=== PATIENT | male | born 1965 | race African-American/Black ===

== ENCOUNTER 2016-02-25 13:07 | Inpatient (IN) | payer OTHER ==
[2016-02-25 13:38] VITALS: BMI 25.0
--- NOTE | 2016-02-25 15:53 | HP ---
Admission [facility] Chief Complaint: I need to stop using drugs and I don't want to lose my apt. Allergies/Adverse Reactions: Allergies Allergy/AdvReac Type Severity Reaction Status Date / Time No Known Drug Allergies Allergy Verified 02/25/16 15:44 tomato Allergy Rash Verified 02/25/16 15:44 PASTA Allergy Severe Rash Uncoded 02/25/16 15:44 tomato sauce Allergy Rash Uncoded 02/25/16 15:44 History of Present Illness: 50 y/o m pt with h/o chronic alcoholism and crack dep. seeking rehab. Exam Limitations: No Limitations - Ebola screening Have you traveled outside of the country in the last 21 days: No Have you had contact with anyone from an Ebola affected area: No Have you been sick,other than usual withdrawal symptoms: No Do you have a fever: No - Review of Systems Constitutional: No Symptoms Reported EENT: reports: No Symptoms Reported Respiratory: reports: No Symptoms reported Cardiac: reports: No Symptoms Reported GI: reports: No Symptoms Reported Neuro: reports: No Symptoms reported Endocrine: reports: No Symptoms Reported Hematology: reports: No Symptoms Reported Psychiatric: reports: No Sypmtoms Reported Other Systems: Reviewed and Negative Patient History - Patient Medical History Hx Anemia: No Hx Asthma: No Hx Chronic Obstructive Pulmonary Disease (COPD): No Hx Cancer: No Hx Cardiac Disorders: No Hx Congestive Heart Failure: No Hx Hypertension: No Hx Hypercholesterolemia: No Hx Pacemaker: No HX Cerebrovascular Accident: No Hx Seizures: No Hx Dementia: No Hx Diabetes: No Hx Gastrointestinal Disorders: No Hx Liver Disease: No Hx Genitourinary Disorders: No Hx Sexually Transmitted Disorders: Yes (1985) Hx Renal Disease (ESRD): No Hx Thyroid Disease: No Hx Human Immunodeficiency Virus (HIV): No (negative) Hx Hepatitis C: No Hx Depression: No Hx Suicide Attempt: No Hx Bipolar Disorder: No Hx Schizophrenia: No Other Medical History: h/o cerebral palsy - Patient Surgical History Past Surgical History: Yes Hx Neurologic Surgery: No Hx Cataract Extraction: No Hx Cardiac Surgery: No Hx Lung Surgery: No Hx Breast Surgery: No Hx Breast Biopsy: No Hx Abdominal Surgery: No Hx Appendectomy: No Hx Cholecystectomy: No Hx Genitourinary Surgery: No Hx Section: No Hx Orthopedic Surgery: Yes (BILATERAL LEG SX DUE TO CEREBRAL PALSY) Anesthesia Reaction: No - PPD History Previous Implant?: Yes Date: 12/11/15 Results: tb gold -neg PPD to be Administered?: No - Reproductive History Patient is a Female of Child Bearing Age (11 -55 yrs old): No - Smoking Cessation Smoking history: Never smoked Have you smoked in the past 12 months: No Aproximately how many cigarettes per day: 0 Cigars Per Day: 0 Hx Chewing Tobacco Use: No Initiated information on smoking cessation: No 'Breaking Loose' booklet given: 02/25/16 - Substance & Tx. History Hx Alcohol Use: Yes Hx Substance Use: Yes Substance Use Type: Alcohol, Cocaine Hx Substance Use Treatment: Yes ([facility] ) - Substances Abused Alcohol Route: Oral Frequency: Daily Amount used: beer 10-six pks /d Age of first use: 16 Date of Last Use: 02/20/16 Crack Route: Smoking Frequency: Daily Amount used: 3.5 gms /d Age of first use: 33 Date of Last Use: 02/20/16 Family Disease History - Family Disease History Family Disease History: Diabetes: Father (ALCOHOL IN REMISSION), CA: Mother ( FROM CA. OF THE BREAST), Other: Father Admission Physical Exam BHS - Vital Signs Vital Signs: Vital Signs - 24 hr 02/25/16 13:37 Temperature 96.8 F L Pulse Rate 107 H Respiratory 18 Rate Blood Pressure 146/86 50 y/o m pt with h/o cerebral palsy who is aox3 in nad ambulating (scissor like ) cooperative with exam - Physical General Appearance: Yes: No Apparent Distress, Appropriately Dressed HEENTM: Yes: EOMI, Hearing grossly Normal, Normocephalic, Normal Voice, WILMAN Respiratory: Yes: Chest Non-Tender, Lungs Clear, Normal Breath Sounds, No Respiratory Distress Neck: Yes: Supple, Trachea in good position Breast: Yes: Within Normal Limits Cardiology: Yes: Regular Rhythm, Regular Rate, S1, S2 Abdominal: Yes: Normal Bowel Sounds, Non Tender, Flat, Soft Genitourinary: Yes: Within Normal Limits Back: Yes: Within Normal Limits Musculoskeletal: Yes: Muscle weakness, Other (abnormal gaity -scissoring) Neurological: Yes: plater barrel II-XII NML intact, Fully Oriented, Alert Integumentary: Yes: Dry Lymphatic: Yes: Within Normal Limits - Diagnostic (1) Alcohol dependence with uncomplicated withdrawal Current Visit: Yes Status: Chronic (2) Cannabis dependence Current Visit: Yes Status: Chronic (3) Cerebral palsy Current Visit: Yes Status: Chronic Qualifiers: Cerebral palsy type: unspecified type Qualified Code(s): G80.9 - Cerebral palsy, unspecified (4) Cocaine dependence Current Visit: Yes Status: Chronic Cleared for Admission S - Detox or Rehab Claeared for Rehab Admission: Yes [facility] Breath Alcohol Content Breath Alcohol Content: 0 Urine Drug Screen - Results Drug Screen Negative: No Urine Drug Screen Results: JULIANN-Cocaine, MDMA-Ecstasy, BZO-Benzodiazepines
[2016-02-25] MEDS ORDERED: diphenhydrAMINE HCL 50 MG CAPSULE PO PRN (16:09)
[2016-02-25] MEDS ORDERED: guaiFENesin/D-METHORPHAN HB 10 ML UNIT-DOSE CUPS PO PRN (16:09)
[2016-02-25] MEDS ORDERED: MENTHOL/PHENOL 1 EACH UD MM PRN (16:09)
[2016-02-25] MEDS ORDERED: LOPERAMIDE HCL 2 MG CAPSULE PO PRN (16:09)
[2016-02-25] MEDS ORDERED: P-EPHED 60MG/TRIPROLIDI 2.5MG TABLET PO PRN (16:09)
[2016-02-25] MEDS ORDERED: MAGNESIUM HYDROX 2400MG/30ML ORAL SUSPENSION 30 ML CUP PO PRN (16:09)
[2016-02-25] MEDS ORDERED: MAG HYDROX/AL HYDROX/SIMETH 30 ML UNIT-DOSE CUP PO PRN (16:09)
[2016-02-25] MEDS ORDERED: MAGNESIUM CITRATE 300 ML BOTTLE PO PRN (16:09)
[2016-02-25] MEDS ORDERED: ACETAMINOPHEN 325 MG TABLET (FP) PO PRN (16:09)
[2016-02-25] MEDS: THIAMINE HCL 100 MG TABLET (FP) PO SCH (21:42)
[2016-02-25 23:43] LABS: URINE APPEARANCE SLCLOUDY; URINE BILIRUBIN NEGATIVE (NEGATIVE); URINE BLOOD NEGATIVE (NEGATIVE); URINE COLOR YELLOW; URINE GLUCOSE (UA) NEGATIVE (NEGATIVE); URINE KETONE NEGATIVE (NEGATIVE); URINE LEUK ESTERASE NEGATIVE (NEGATIVE); URINE NITRITE NEGATIVE (NEGATIVE); URINE PROTEIN NEGATIVE (NEGATIVE); URINE UROBILINOGEN NEGATIVE E.U./dl (0.2-1.0)
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
[2016-02-26 10:29] LABS: MCH 29.2 pg (25.7-33.7); MCHC 33.1 g/dl (32.0-35.9); MEAN CELL VOLUME 88.4 fl (80-96); MEAN PLT VOLUME 10.3 fl (7.5-11.1); PLATELET COUNT 196 K/MM3 (134-434); RDW 14.4 % (11.9-15.9); WHITE BLOOD COUNT 6.4 K/mm3 (4.0-10.0)
[2016-02-26] MEDS: PRENATAL VITAMINS W/ FOLIC ACID TABLET (FP) PO SCH (10:30)
[2016-02-26 10:32] LABS: ALBUMIN 4.1 g/dl (3.4-5.0); ANION GAP 6 (8-16); CALCIUM 9.5 mg/dL (8.5-10.1); CO2 26 mmol/L (21-32); GLUCOSE,RANDOM 127 mg/dL (74-106); SGOT/AST 13 U/L (15-37); SGPT/ALT 30 U/L (12-78)
[2016-02-26 10:35] LABS: ALK PHOS 92 U/L (45-117); BILIRUBIN,TOTAL 0.6 mg/dL (0.2-1.0)
--- NOTE | 2016-02-26 11:49 | EKG ---
Test Reason : Blood Pressure : / mmHG Vent. Rate : 070 BPM Atrial Rate : 070 BPM P-R Int : 112 ms QRS Dur : 082 ms QT Int : 376 ms P-R-T Axes : 046 -17 056 degrees QTc Int : 406 ms NORMAL SINUS RHYTHM POSSIBLE LEFT ATRIAL ENLARGEMENT BORDERLINE ECG WHEN COMPARED WITH ECG OF 11-AUG-2008 21:55, VENT. RATE HAS DECREASED BY 56 BPM Confirmed by ESTHELA BRISENO, JAMES ([id number]) on 02/26/2016 11:49:06 AM Referred By: Confirmed By:JAMES PROCTOR MD
[2016-02-26 12:26] LABS: HIV 1 & 2 AB NEGATIVE; HIV 1 AGp24 NEGATIVE
[2016-02-26] MEDS: THIAMINE HCL 100 MG TABLET (FP) PO SCH (22:52)
[2016-02-27] MEDS: PRENATAL VITAMINS W/ FOLIC ACID TABLET (FP) PO SCH (11:00)
[2016-02-27] MEDS: THIAMINE HCL 100 MG TABLET (FP) PO SCH (22:54)
[2016-02-28] MEDS: PRENATAL VITAMINS W/ FOLIC ACID TABLET (FP) PO SCH (10:37)
[2016-02-28] MEDS: IBUPROFEN 400 MG TABLET (FP) PO PRN (17:06)
[2016-02-28] MEDS: THIAMINE HCL 100 MG TABLET (FP) PO SCH (22:42)
[2016-02-29] MEDS: PRENATAL VITAMINS W/ FOLIC ACID TABLET (FP) PO SCH (10:26)
[2016-02-29] MEDS: IBUPROFEN 400 MG TABLET (FP) PO PRN (17:36)
[2016-02-29] MEDS: THIAMINE HCL 100 MG TABLET (FP) PO SCH (21:55)
[2016-03-01] MEDS: IBUPROFEN 400 MG TABLET (FP) PO PRN (09:17)
[2016-03-01] MEDS: PRENATAL VITAMINS W/ FOLIC ACID TABLET (FP) PO SCH (09:53)
[2016-03-01] MEDS: THIAMINE HCL 100 MG TABLET (FP) PO SCH (22:16)
[2016-03-02] MEDS: PRENATAL VITAMINS W/ FOLIC ACID TABLET (FP) PO SCH (10:56)
[2016-03-02] MEDS: THIAMINE HCL 100 MG TABLET (FP) PO SCH (22:29)
[2016-03-03] MEDS: PRENATAL VITAMINS W/ FOLIC ACID TABLET (FP) PO SCH (10:31)
[2016-03-03] MEDS ORDERED: CYCLOBENZAPRINE HCL 10 MG TABLET (FP) PO PRN (13:07)
[2016-03-03] MEDS: IBUPROFEN 400 MG TABLET (FP) PO PRN (20:05)
[2016-03-03] MEDS: THIAMINE HCL 100 MG TABLET (FP) PO SCH (23:14)
[2016-03-04] MEDS: PRENATAL VITAMINS W/ FOLIC ACID TABLET (FP) PO SCH (10:23)
[2016-03-04] MEDS: THIAMINE HCL 100 MG TABLET (FP) PO SCH (22:05)
[2016-03-05] MEDS: PRENATAL VITAMINS W/ FOLIC ACID TABLET (FP) PO SCH (09:46)
[2016-03-05] MEDS: THIAMINE HCL 100 MG TABLET (FP) PO SCH (21:53)
[2016-03-06] MEDS: PRENATAL VITAMINS W/ FOLIC ACID TABLET (FP) PO SCH (09:54)
[2016-03-06] MEDS: IBUPROFEN 400 MG TABLET (FP) PO PRN (09:54)
[2016-03-06] MEDS: THIAMINE HCL 100 MG TABLET (FP) PO SCH (23:15)
[2016-03-07] MEDS: PRENATAL VITAMINS W/ FOLIC ACID TABLET (FP) PO SCH (10:39)
[2016-03-07] MEDS: THIAMINE HCL 100 MG TABLET (FP) PO SCH (22:55)
[2016-03-08] MEDS: PRENATAL VITAMINS W/ FOLIC ACID TABLET (FP) PO SCH (10:09)
[2016-03-08] MEDS: THIAMINE HCL 100 MG TABLET (FP) PO SCH (22:57)
[2016-03-09] MEDS: PRENATAL VITAMINS W/ FOLIC ACID TABLET (FP) PO SCH (11:12)
[2016-03-09] MEDS: IBUPROFEN 400 MG TABLET (FP) PO PRN (12:03)
[2016-03-09] MEDS: THIAMINE HCL 100 MG TABLET (FP) PO SCH (22:22)
--- NOTE | 2016-03-10 09:44 | PN ---
Psychiatric Progress Note Vital Signs: Vital Signs Period Temp Pulse Resp BP Sys/Magaña Pulse Ox Last 24 Hr 97.4 F 68 16-18 132/86 Date of Session: 03/10/16 Chief Complaint:: Psychiarist Discharge Note HPI: Patient addressing Alcohol and Cocaine Dependence ROS: Cerebral Palsy Current Medications: Active Medications Generic Name Dose Route Start Last Admin Trade Name Freq PRN Reason Stop Dose Admin Acetaminophen 650 mg 02/25/16 16:09 Tylenol - PO Q4H PRN PAIN Al Hydroxide/Mg Hydroxide 30 ml 02/25/16 16:09 Mylanta Oral Suspension - PO Q6H PRN DYSPEPSIA Cyclobenzaprine HCl 10 mg 03/03/16 13:07 Flexeril - PO TID PRN MUSCLE SPASMS Diphenhydramine HCl 50 mg 02/25/16 16:09 Benadryl - PO HSMR1 PRN INSOMNIA Eucalyptus/Menthol/Phenol/Sorbitol 1 each 02/25/16 16:09 Cepastat Lozenge - MM Q4H PRN SORE THROAT Guaifenesin 10 ml 02/25/16 16:09 Robitussin Dm - PO Q6H PRN COUGH Ibuprofen 400 mg 02/25/16 16:09 03/09/16 12:03 Motrin - PO 400 mg Q6H PRN Administration SEVERE PAIN Loperamide HCl 4 mg 02/25/16 16:09 Imodium - PO Q6H PRN DIARRHEA Magnesium Citrate 300 ml 02/25/16 16:09 Citroma - PO Q48H PRN CONSTIPATION Magnesium Hydroxide 30 ml 02/25/16 16:09 03/09/16 15:47 Milk Of Magnesia - PO 30 ml DAILY PRN Administration CONSTIPATION Multivit/Folic Acid/Iron 1 tab 02/26/16 10:00 03/09/16 11:12 Vitamins (Sjr) - PO Not Given DAILY ELENA Pseudoephedrine/Triprolidine 1 combo 02/25/16 16:09 Actifed - PO TID PRN NASAL CONGESTION Thiamine HCl 100 mg 02/25/16 22:00 03/09/16 22:22 Vitamin B1 - PO Not Given HS ELENA Current Side Effect: No Lab tests ordered: Yes Lab tests reviewed: Yes Provider note:: Patient will complete this program on 03/11/16. He has made some progress towards his treatment goals and will continue to address his issues in outpatient treatment at [facility]. Told auto service writer that from his participation in this program, he has become more aware of his triggers and the importance of establising a sober network in order to maintain abstinence. He is stable for discharge on 03/11/16 Total face to face time:: 35 Mental Status Exam - Mental Status Exam Alert and Oriented to: Time, Place, Person Cognitive Function: Fair Patient Appearance: Well Groomed Mood: Expansive, Hopeful, Euthymic Patient Behavior: Cooperative Speech Pattern: Clear Voice Loudness: Normal, Limited Variation Thought Disorder: Not Present Hallucinations: Denies Suicidal Ideation: Denies Homicidal Ideation: Denies Insight/Judgement: Fair Sleep: Fair Appetite: Good Muscle strength/Tone: Normal Gait/Station: Normal Psychiatric Treatment Plan - Problem List (1) Alcohol dependence with uncomplicated withdrawal Current Visit: Yes (2) Cocaine dependence Current Visit: Yes (3) Cerebral palsy Current Visit: Yes Qualifiers: Cerebral palsy type: unspecified type Qualified Code(s): G80.9 - Cerebral palsy, unspecified Initial treatment plan: Patient will be discharged tomorrow and referred to for outpatient treatment
[2016-03-10] MEDS: IBUPROFEN 400 MG TABLET (FP) PO PRN (09:50)
[2016-03-10] MEDS: PRENATAL VITAMINS W/ FOLIC ACID TABLET (FP) PO SCH (10:16)
[2016-03-10] MEDS: THIAMINE HCL 100 MG TABLET (FP) PO SCH (22:44)
[2016-03-11 07:26] VITALS: BP 122/79; PULSE 77; TEMP 97.7
== END 2016-03-11 08:30 | disposition home or self-care (01) | DRG 772 ==
LOC: YASAS 13:07 → Y3W 16:17
PROVIDERS: ADMIT Psychiatry & Neurology Psychiatry; ATTEND Psychiatry & Neurology Psychiatry
PROC: HZ42ZZZ Group Counseling for Substance Abuse Treatment, Cognitive-Behavioral (ICD-10-PCS; principal; 2016-03-11)
DX: F10.230 Alcohol dependence with withdrawal, uncomplicated (principal); F14.20 Cocaine dependence, uncomplicated; F12.20 Cannabis dependence, uncomplicated; G80.9 Cerebral palsy, unspecified
CPT/HCPCS: 36415; 80053; 81003; 83036; 85027; 86593; 87389; 93005; 93010

== ENCOUNTER 2016-05-15 10:20 | Inpatient (IN) | payer OTHER ==
[2016-05-15 11:02] VITALS: BMI 23.2
--- NOTE | 2016-05-15 13:17 | HP ---
CIWA Score - CIWA Score Nausea/Vomitin (DIARRHEA) Muscle Tremors: 4-Moderate,w/Arms Extend Anxiety: 4-Mod. Anxious/Guarded Agitation: 4-Moderately Restless Paroxysmal Sweats: 1-Minimal Palms Moist Orientation: 0-Oriented Tacttile Disturbances: 3-Moderate Itch/Numb/Burn Auditory Disturbances: 0-None Visual Disturbances: 0-None Headache: 0-None Present CIWA-Ar Total Score: 21 Admission ROS BHS - HPI Chief Complaint: DETOX TX FOR ALCOHOL DEPENDENCE Allergies/Adverse Reactions: Allergies Allergy/AdvReac Type Severity Reaction Status Date / Time No Known Drug Allergies Allergy Verified 05/15/16 11:20 tomato Allergy Rash Verified 05/15/16 11:20 PASTA Allergy Severe Rash Uncoded 05/15/16 11:20 History of Present Illness: 50 Y/O AA/MALE WITH A HX OF ALCOHOL AND CRACK DEPENDENCE Exam Limitations: No Limitations - Ebola screening Have you traveled outside of the country in the last 21 days: No Have you had contact with anyone from an Ebola affected area: No Have you been sick,other than usual withdrawal symptoms: No Do you have a fever: No - Review of Systems Constitutional: Chills, Night Sweats, Unintentional Wgt. Loss EENT: reports: Dental Problems (MISSING TEETH) Respiratory: reports: No Symptoms reported Cardiac: reports: No Symptoms Reported GI: reports: Diarrhea, Nausea, Poor Fluid Intake : reports: No Symptoms Reported Musculoskeletal: reports: Muscle Weakness (CEREBRAL PALSY HX) Integumentary: reports: No Symptoms Reported Neuro: reports: Headache, Numbness, Tingling, Tremors, Unsteady Gait (MUSCLE WEAKNESS DUE TO CP HX) Endocrine: reports: No Symptoms Reported Hematology: reports: No Symptoms Reported Psychiatric: reports: Orientated x3, Anxious Other Systems: Reviewed and Negative Patient History - Patient Medical History Hx Anemia: No Hx Asthma: No Hx Chronic Obstructive Pulmonary Disease (COPD): No Hx Cancer: No Hx Cardiac Disorders: No Hx Congestive Heart Failure: No Hx Hypertension: No Hx Hypercholesterolemia: No Hx Pacemaker: No HX Cerebrovascular Accident: No Hx Seizures: No Hx Dementia: No Hx Diabetes: No Hx Gastrointestinal Disorders: No Hx Liver Disease: No Hx Genitourinary Disorders: No Hx Sexually Transmitted Disorders: No Hx Renal Disease (ESRD): No Hx Thyroid Disease: No Hx Human Immunodeficiency Virus (HIV): No (NEGATIVE HX) Hx Hepatitis C: No Hx Depression: No Hx Suicide Attempt: No (DENIES) Hx Bipolar Disorder: No Hx Schizophrenia: No Other Medical History: CEREBRAL PALSY - Patient Surgical History Past Surgical History: Yes Hx Neurologic Surgery: No Hx Cataract Extraction: No Hx Cardiac Surgery: No Hx Lung Surgery: No Hx Breast Surgery: No Hx Breast Biopsy: No Hx Abdominal Surgery: No Hx Appendectomy: No Hx Cholecystectomy: No Hx Genitourinary Surgery: No Hx Orthopedic Surgery: Yes (BILATERAL LEG SX DUE TO CEREBRAL PALSY) Anesthesia Reaction: No - PPD History Previous Implant?: Yes Documented Results: Positive w/o proof Date: 12/11/15 Results: tb gold -neg PPD to be Administered?: No - Reproductive History Patient is a Female of Child Bearing Age (11 -55 yrs old): No (MALE) - Smoking Cessation Smoking history: Never smoked Have you smoked in the past 12 months: No Aproximately how many cigarettes per day: 0 Cigars Per Day: 0 Hx Chewing Tobacco Use: No Initiated information on smoking cessation: No - Substance & Tx. History Hx Alcohol Use: Yes (BEER/RUM) Hx Substance Use: Yes (CRACK) Substance Use Type: Alcohol, Cocaine Hx Substance Use Treatment: Yes ([facility]) - Substances Abused Crack Route: Smoking Frequency: Daily Amount used: $100 Age of first use: 34 Date of Last Use: 05/14/16 Alcohol-beer/rum Route: Oral Frequency: Daily Amount used: 3-6 pks./02 08/ pts. Age of first use: 16 Date of Last Use: 05/14/16 Family Disease History - Family Disease History Family Disease History: Diabetes: Father (ALCOHOL IN REMISSION), CA: Mother ( FROM CA. OF THE BREAST), Other: Father Admission Physical Exam S - Vital Signs Vital Signs: Vital Signs - 24 hr 05/15/16 10:58 Temperature 97.3 F L Pulse Rate 69 Respiratory 18 Rate Blood Pressure 135/72 - Physical General Appearance: Yes: Moderate Distress, Irritable, Anxious HEENTM: Yes: EOMI, Normocephalic, WILMAN, Pharynx Normal Respiratory: Yes: Chest Non-Tender, Lungs Clear, Normal Breath Sounds, No Respiratory Distress Neck: Yes: Supple, Trachea in good position Breast: Yes: Breast Exam Deferred Cardiology: Yes: Regular Rhythm, Regular Rate, S1, S2 Abdominal: Yes: Normal Bowel Sounds, Non Tender, Soft Genitourinary: Yes: Other (N/C) Back: Yes: Within Normal Limits Musculoskeletal: Yes: full range of Motion, Gait Steady Extremities: Yes: Normal Range of Motion, Non-Tender Neurological: Yes: process consultant II-XII NML intact, Fully Oriented, Alert, Other (HX CEREBRAL PALSY--) Integumentary: Yes: Dry, Warm Lymphatic: Yes: Within Normal Limits - Diagnostic (1) Alcohol dependence with uncomplicated withdrawal Current Visit: Yes Status: Acute (2) Cannabis dependence Current Visit: Yes Status: Inactive (3) Cerebral palsy Current Visit: Yes Status: Chronic Qualifiers: Cerebral palsy type: unspecified type Qualified Code(s): G80.9 - Cerebral palsy, unspecified (4) Cocaine dependence Current Visit: Yes Status: Acute Cleared for Admission [facility] - Detox or Rehab [facility] Level of Care: Medically Managed Detox Regimen/Protocol: Librium [facility] Breath Alcohol Content Breath Alcohol Content: 0 Urine Drug Screen - Results Drug Screen Negative: No Urine Drug Screen Results: JULIANN-Cocaine
[2016-05-15] MEDS ORDERED: MAGNESIUM HYDROX 2400MG/30ML ORAL SUSPENSION 30 ML CUP PO PRN (13:25)
[2016-05-15] MEDS ORDERED: IBUPROFEN 400 MG TABLET (FP) PO PRN (13:25)
[2016-05-15] MEDS ORDERED: MENTHOL/PHENOL 1 EACH UD MM PRN (13:25)
[2016-05-15] MEDS ORDERED: MAG HYDROX/AL HYDROX/SIMETH 30 ML UNIT-DOSE CUP PO PRN (13:25)
[2016-05-15] MEDS ORDERED: P-EPHED 60MG/TRIPROLIDI 2.5MG TABLET PO PRN (13:25)
[2016-05-15] MEDS ORDERED: LOPERAMIDE HCL 2 MG CAPSULE PO PRN (13:25)
[2016-05-15] MEDS ORDERED: MAGNESIUM CITRATE 300 ML BOTTLE PO PRN (13:25)
[2016-05-15] MEDS ORDERED: chlordiazePOXIDE HCL 25 MG CAPSULE PO PRN (13:25)
[2016-05-15] MEDS ORDERED: guaiFENesin/D-METHORPHAN HB 10 ML UNIT-DOSE CUPS PO PRN (13:25)
[2016-05-15] MEDS ORDERED: ACETAMINOPHEN 325 MG TABLET (FP) PO PRN (13:25)
[2016-05-15] MEDS ORDERED: diphenhydrAMINE HCL 50 MG CAPSULE PO PRN (13:25)
[2016-05-15] MEDS ORDERED: hydrOXYzine PAMOATE 25 MG CAPSULE (FP) PO PRN (13:25)
[2016-05-15] MEDS ORDERED: chlordiazePOXIDE HCL 25 MG CAPSULE PO ONE (14:07)
[2016-05-15 15:31] LABS: HIV 1 & 2 AB NEGATIVE; HIV 1 AGp24 NEGATIVE
[2016-05-15] MEDS: chlordiazePOXIDE HCL 25 MG CAPSULE PO SCH ×2 (17:44→22:07)
[2016-05-15 20:11] LABS: URINE APPEARANCE CLEAR; URINE BILIRUBIN NEGATIVE (NEGATIVE); URINE BLOOD NEGATIVE (NEGATIVE); URINE COLOR LTYELLOW; URINE GLUCOSE (UA) NEGATIVE (NEGATIVE); URINE KETONE NEGATIVE (NEGATIVE); URINE LEUK ESTERASE NEGATIVE (NEGATIVE); URINE NITRITE NEGATIVE (NEGATIVE); URINE PROTEIN NEGATIVE (NEGATIVE); URINE UROBILINOGEN NEGATIVE E.U./dl (0.2-1.0)
[2016-05-15] MEDS: THIAMINE HCL 100 MG TABLET (FP) PO SCH (22:07)
[2016-05-16] MEDS: chlordiazePOXIDE HCL 25 MG CAPSULE PO SCH ×4 (06:11→22:20)
[2016-05-16 10:12] LABS: MCH 28.8 pg (25.7-33.7); MCHC 32.7 g/dl (32.0-35.9); MEAN PLT VOLUME 10.4 fl (7.5-11.1); PLATELET COUNT 176 K/MM3 (134-434); RDW 13.9 % (11.9-15.9); WHITE BLOOD COUNT 4.5 K/mm3 (4.0-10.0)
[2016-05-16] MEDS: PRENATAL VITAMINS W/ FOLIC ACID TABLET (FP) PO SCH (10:13)
[2016-05-16 10:23] LABS: ALBUMIN 3.9 g/dl (3.4-5.0); ANION GAP 12 (8-16); CALCIUM 8.7 mg/dL (8.5-10.1); CO2 24 mmol/L (21-32); GLUCOSE,RANDOM 159 mg/dL (74-106)
[2016-05-16 10:29] LABS: ALK PHOS 74 U/L (45-117); BILIRUBIN,TOTAL 0.9 mg/dL (0.2-1.0); COCKROFT - GAULT 71; CREATININE 1.2 mg/dL (0.7-1.3); SGOT/AST 11 U/L (15-37); SGPT/ALT 32 U/L (12-78); TOT PROT 6.6 g/dl (6.4-8.2)
--- NOTE | 2016-05-16 10:30 | PN ---
[facility] CIWA - CIWA Score Nausea/Vomitin-No Nausea/No Vomiting Muscle Tremors: 4-Moderate,w/Arms Extend Anxiety: 4-Mod. Anxious/Guarded Agitation: 3 Paroxysmal Sweats: 3 Orientation: 0-Oriented Tacttile Disturbances: 1-Very Mild Itch/Numbness Auditory Disturbances: 0-None Visual Disturbances: 0-None Headache: 0-None Present CIWA-Ar Total Score: 15 BHS Progress Note (SOAP) Subjective: Anxiety,tremors,sweating,interrupted sleep,restless Objective: 05/16/16 10:28 Vital Signs - 8 hr 05/16/16 05/16/16 05/16/16 03:53 06:35 09:44 Temperature 97.0 F L 98.4 F Pulse Rate 77 92 H Respiratory 18 18 18 Rate Blood Pressure 124/95 119/79 Laboratory Last Values Urine Color Ltyellow 05/15/16 13:00 Urine Appearance Clear 05/15/16 13:00 Urine pH 7.0 (5.0-8.0) D 05/15/16 13:00 Ur Specific [place] 1.020 (1.001-1.035) 05/15/16 13:00 Urine Protein Negative (NEGATIVE) 05/15/16 13:00 Urine Glucose (UA) Negative (NEGATIVE) 05/15/16 13:00 Urine Ketones Negative (NEGATIVE) 05/15/16 13:00 Urine Blood Negative (NEGATIVE) 05/15/16 13:00 Urine Nitrite Negative (NEGATIVE) 05/15/16 13:00 Urine Bilirubin Negative (NEGATIVE) 05/15/16 13:00 Urine Urobilinogen Negative E.U./dl (0.2-1.0) 05/15/16 13:00 Ur Leukocyte Esterase Negative (NEGATIVE) 05/15/16 13:00 HIV 1&2 Antibody Screen Negative 05/15/16 12:25 HIV P24 Antigen Negative 05/15/16 12:25 labs noted Assessment: 05/16/16 10:28 Withdrawal sx. Plan: Continue detox
--- NOTE | 2016-05-16 16:16 | EKG ---
Test Reason : Blood Pressure : / mmHG Vent. Rate : 064 BPM Atrial Rate : 064 BPM P-R Int : 106 ms QRS Dur : 098 ms QT Int : 360 ms P-R-T Axes : 044 -26 071 degrees QTc Int : 371 ms SINUS RHYTHM WITH SHORT LA POSSIBLE LEFT ATRIAL ENLARGEMENT INCOMPLETE RIGHT BUNDLE BRANCH BLOCK NONSPECIFIC T WAVE ABNORMALITY ABNORMAL ECG WHEN COMPARED WITH ECG OF 25-FEB-2016 21:48, INCOMPLETE RIGHT BUNDLE BRANCH BLOCK IS NOW PRESENT Confirmed by KADE RITTER MD ([id number]) on 05/16/2016 4:16:40 PM Referred By: Camilo Robles Confirmed By:KADE RITTER MD
[2016-05-16] MEDS: THIAMINE HCL 100 MG TABLET (FP) PO SCH (22:20)
[2016-05-17] MEDS: chlordiazePOXIDE HCL 25 MG CAPSULE PO SCH ×2 (06:03→10:18)
[2016-05-17] MEDS: PRENATAL VITAMINS W/ FOLIC ACID TABLET (FP) PO SCH (10:18)
--- NOTE | 2016-05-17 12:33 | PN ---
S CIWA - CIWA Score Nausea/Vomitin-No Nausea/No Vomiting Muscle Tremors: 4-Moderate,w/Arms Extend Anxiety: 3 Agitation: 3 Paroxysmal Sweats: 3 Orientation: 0-Oriented Tacttile Disturbances: 0-None Auditory Disturbances: 0-None Visual Disturbances: 0-None Headache: 0-None Present CIWA-Ar Total Score: 13 BHS Progress Note (SOAP) Subjective: Sweating,anxiety,tremors,interrupted sleep,restless Objective: 05/17/16 12:32 Vital Signs - 8 hr 05/17/16 05/17/16 06:43 09:49 Temperature 97.1 F L 97.1 F L Pulse Rate 80 96 H Respiratory 18 18 Rate Blood Pressure 134/87 125/85 Laboratory Tests 05/15/16 05/15/16 05/16/16 12:25 13:00 06:00 WBC 4.5 RBC 5.02 Hgb 14.4 Hct 44.1 MCV 88.0 MCHC 32.7 RDW 13.9 Plt Count 176 MPV 10.4 Sodium Potassium Chloride Carbon Dioxide Anion Gap BUN Creatinine Creat Clearance w eGFR Random Glucose Calcium Total Bilirubin AST ALT Alkaline Phosphatase Total Protein Albumin Urine Color Ltyellow Urine Appearance Clear Urine pH 7.0 D Ur Specific [place] 1.020 Urine Protein Negative Urine Glucose (UA) Negative Urine Ketones Negative Urine Blood Negative Urine Nitrite Negative Urine Bilirubin Negative Urine Urobilinogen Negative Ur Leukocyte Esterase Negative RPR Titer HIV 1&2 Antibody Screen Negative HIV P24 Antigen Negative 05/16/16 05/16/16 06:00 06:00 WBC RBC Hgb Hct MCV MCHC RDW Plt Count MPV Sodium 141 Potassium 3.9 Chloride 105 Carbon Dioxide 24 Anion Gap 12 BUN 11 D Creatinine 1.2 Creat Clearance w eGFR > 60 Random Glucose 159 H D Calcium 8.7 Total Bilirubin 0.9 D AST 11 L ALT 32 Alkaline Phosphatase 74 Total Protein 6.6 Albumin 3.9 Urine Color Urine Appearance Urine pH Ur Specific [place] Urine Protein Urine Glucose (UA) Urine Ketones Urine Blood Urine Nitrite Urine Bilirubin Urine Urobilinogen Ur Leukocyte Esterase RPR Titer Nonreactive HIV 1&2 Antibody Screen HIV P24 Antigen labs noted Assessment: 05/17/16 12:32 Withdrawal sx. Plan: continue detox
[2016-05-17] MEDS: chlordiazePOXIDE 5 MG CAPSULE PO SCH ×2 (17:50→22:17)
[2016-05-17] MEDS: THIAMINE HCL 100 MG TABLET (FP) PO SCH (22:16)
[2016-05-18] MEDS: chlordiazePOXIDE 5 MG CAPSULE PO SCH ×2 (06:10→11:08)
[2016-05-18] MEDS: PRENATAL VITAMINS W/ FOLIC ACID TABLET (FP) PO SCH (11:08)
--- NOTE | 2016-05-18 15:16 | PN ---
BHS Progress Note (SOAP) Subjective: Sweating,interrupted sleep,restless. Objective: 05/18/16 15:15 Vital Signs - 8 hr 05/18/16 05/18/16 09:59 13:51 Temperature 96.5 F L 96.6 F L Pulse Rate 92 H 82 Respiratory 20 20 Rate Blood Pressure 133/90 125/83 Laboratory Last Values WBC 4.5 K/mm3 (4.0-10.0) 05/16/16 06:00 RBC 5.02 M/mm3 (4.00-5.60) 05/16/16 06:00 Hgb 14.4 GM/dL (11.7-16.9) 05/16/16 06:00 Hct 44.1 % (35.4-49) 05/16/16 06:00 MCV 88.0 fl (80-96) 05/16/16 06:00 MCHC 32.7 g/dl (32.0-35.9) 05/16/16 06:00 RDW 13.9 % (11.9-15.9) 05/16/16 06:00 Plt Count 176 K/MM3 (134-434) 05/16/16 06:00 MPV 10.4 fl (7.5-11.1) 05/16/16 06:00 Sodium 141 mmol/L (136-145) 05/16/16 06:00 Potassium 3.9 mmol/L (3.5-5.1) 05/16/16 06:00 Chloride 105 mmol/L (98-107) 05/16/16 06:00 Carbon Dioxide 24 mmol/L (21-32) 05/16/16 06:00 Anion Gap 12 (8-16) 05/16/16 06:00 BUN 11 mg/dL (7-18) D 05/16/16 06:00 Creatinine 1.2 mg/dL (0.7-1.3) 05/16/16 06:00 Creat Clearance w eGFR > 60 (>60) 05/16/16 06:00 Random Glucose 159 mg/dL (74-106) H D 05/16/16 06:00 Calcium 8.7 mg/dL (8.5-10.1) 05/16/16 06:00 Total Bilirubin 0.9 mg/dL (0.2-1.0) D 05/16/16 06:00 AST 11 U/L (15-37) L 05/16/16 06:00 ALT 32 U/L (12-78) 05/16/16 06:00 Alkaline Phosphatase 74 U/L (45-117) 05/16/16 06:00 Total Protein 6.6 g/dl (6.4-8.2) 05/16/16 06:00 Albumin 3.9 g/dl (3.4-5.0) 05/16/16 06:00 Urine Color Ltyellow 05/15/16 13:00 Urine Appearance Clear 05/15/16 13:00 Urine pH 7.0 (5.0-8.0) D 05/15/16 13:00 Ur Specific [place] 1.020 (1.001-1.035) 05/15/16 13:00 Urine Protein Negative (NEGATIVE) 05/15/16 13:00 Urine Glucose (UA) Negative (NEGATIVE) 05/15/16 13:00 Urine Ketones Negative (NEGATIVE) 05/15/16 13:00 Urine Blood Negative (NEGATIVE) 05/15/16 13:00 Urine Nitrite Negative (NEGATIVE) 05/15/16 13:00 Urine Bilirubin Negative (NEGATIVE) 05/15/16 13:00 Urine Urobilinogen Negative E.U./dl (0.2-1.0) 05/15/16 13:00 Ur Leukocyte Esterase Negative (NEGATIVE) 05/15/16 13:00 RPR Titer Nonreactive (NONREACTIVE) 05/16/16 06:00 HIV 1&2 Antibody Screen Negative 05/15/16 12:25 HIV P24 Antigen Negative 05/15/16 12:25 labs noted Assessment: 05/18/16 15:15 Withdrawal sx. Plan: Continue detox
[2016-05-18] MEDS: chlordiazePOXIDE HCL 10 MG CAPSULE PO SCH ×2 (17:24→22:16)
--- NOTE | 2016-05-18 21:16 | PN ---
BHS Progress Note Note: RECEIVED NURSE INFORMED REFUSED LIBRIUM 10 MG X 1 LESS WITHDRAWAL SX CARE LEVEL TO OBSERVATION BED
[2016-05-18] MEDS: THIAMINE HCL 100 MG TABLET (FP) PO SCH (22:16)
[2016-05-19] MEDS: chlordiazePOXIDE HCL 10 MG CAPSULE PO SCH ×2 (06:07→11:25)
[2016-05-19 06:51] VITALS: TEMP 96.9
--- NOTE | 2016-05-19 08:57 | DS ---
[facility] Detox Discharge Summary Admission Date: 05/15/16 Discharge Date: 05/19/16 - History Present History: Alcohol Dependence, Cocaine Dependence Additional Comments: DETOX COMPLETED. ALERT O X 3. NAD. Pertinent Past History: CEREBRAL PALSY - Physical Exam Results Vital Signs: Vital Signs Temperature 96.9 F L 05/19/16 06:51 Pulse Rate 81 05/19/16 06:51 Respiratory Rate 18 05/19/16 06:51 Blood Pressure 126/83 05/19/16 06:51 O2 Sat by Pulse Oximetry (%) Pertinent Admission Physical Exam Findings: WITHDRAWAL SX Laboratory Last Values WBC 4.5 K/mm3 (4.0-10.0) 05/16/16 06:00 RBC 5.02 M/mm3 (4.00-5.60) 05/16/16 06:00 Hgb 14.4 GM/dL (11.7-16.9) 05/16/16 06:00 Hct 44.1 % (35.4-49) 05/16/16 06:00 MCV 88.0 fl (80-96) 05/16/16 06:00 MCHC 32.7 g/dl (32.0-35.9) 05/16/16 06:00 RDW 13.9 % (11.9-15.9) 05/16/16 06:00 Plt Count 176 K/MM3 (134-434) 05/16/16 06:00 MPV 10.4 fl (7.5-11.1) 05/16/16 06:00 Sodium 141 mmol/L (136-145) 05/16/16 06:00 Potassium 3.9 mmol/L (3.5-5.1) 05/16/16 06:00 Chloride 105 mmol/L (98-107) 05/16/16 06:00 Carbon Dioxide 24 mmol/L (21-32) 05/16/16 06:00 Anion Gap 12 (8-16) 05/16/16 06:00 BUN 11 mg/dL (7-18) D 05/16/16 06:00 Creatinine 1.2 mg/dL (0.7-1.3) 05/16/16 06:00 Creat Clearance w eGFR > 60 (>60) 05/16/16 06:00 Random Glucose 159 mg/dL (74-106) H D 05/16/16 06:00 Calcium 8.7 mg/dL (8.5-10.1) 05/16/16 06:00 Total Bilirubin 0.9 mg/dL (0.2-1.0) D 05/16/16 06:00 AST 11 U/L (15-37) L 05/16/16 06:00 ALT 32 U/L (12-78) 05/16/16 06:00 Alkaline Phosphatase 74 U/L (45-117) 05/16/16 06:00 Total Protein 6.6 g/dl (6.4-8.2) 05/16/16 06:00 Albumin 3.9 g/dl (3.4-5.0) 05/16/16 06:00 Urine Color Ltyellow 05/15/16 13:00 Urine Appearance Clear 05/15/16 13:00 Urine pH 7.0 (5.0-8.0) D 05/15/16 13:00 Ur Specific [place] 1.020 (1.001-1.035) 05/15/16 13:00 Urine Protein Negative (NEGATIVE) 05/15/16 13:00 Urine Glucose (UA) Negative (NEGATIVE) 05/15/16 13:00 Urine Ketones Negative (NEGATIVE) 05/15/16 13:00 Urine Blood Negative (NEGATIVE) 05/15/16 13:00 Urine Nitrite Negative (NEGATIVE) 05/15/16 13:00 Urine Bilirubin Negative (NEGATIVE) 05/15/16 13:00 Urine Urobilinogen Negative E.U./dl (0.2-1.0) 05/15/16 13:00 Ur Leukocyte Esterase Negative (NEGATIVE) 05/15/16 13:00 RPR Titer Nonreactive (NONREACTIVE) 05/16/16 06:00 HIV 1&2 Antibody Screen Negative 05/15/16 12:25 HIV P24 Antigen Negative 05/15/16 12:25 - Treatment Hospital Course: Detox Protocol Followed, Detoxed Safely, Responded well, Discharged Condition Good, Rehab Referral Accepted Patient has Accepted a Rehab Referral to: [facility] - Medication Discharge Medications: Ambulatory Orders NK [No Known Home Medication] 02/25/16 - Diagnosis (1) Alcohol dependence with uncomplicated withdrawal Current Visit: Yes Status: Acute (2) Cannabis dependence Current Visit: Yes Status: Inactive (3) Cerebral palsy Current Visit: Yes Status: Chronic Qualifiers: Cerebral palsy type: unspecified type Qualified Code(s): G80.9 - Cerebral palsy, unspecified (4) Cocaine dependence Current Visit: Yes Status: Acute - AMA Did Patient Leave Against Medical Advice: No
[2016-05-19 10:17] VITALS: BP 130/81; PULSE 93
[2016-05-19] MEDS: PRENATAL VITAMINS W/ FOLIC ACID TABLET (FP) PO SCH (11:25)
== END 2016-05-19 11:30 | disposition home or self-care (01) | DRG 774 ==
LOC: YASAS 10:20 → Y3N 11:52
PROVIDERS: ADMIT Internal Medicine; ATTEND Internal Medicine
PROC: HZ2ZZZZ Detoxification Services for Substance Abuse Treatment (ICD-10-PCS; principal; 2016-05-19)
DX: F10.230 Alcohol dependence with withdrawal, uncomplicated (principal); F12.20 Cannabis dependence, uncomplicated; F14.20 Cocaine dependence, uncomplicated; G80.9 Cerebral palsy, unspecified
CPT/HCPCS: 36415; 71020-TC; 80053; 81003; 85027; 86593; 87389; 93005; 93010

== ENCOUNTER 2022-11-10 15:38 | Inpatient (IN) | payer OTHER ==
[2022-11-10 17:28] VITALS: BMI 23.5
[2022-11-10] MEDS ORDERED: BENZONATATE 200 MG CAPSULE PO PRN (18:39)
[2022-11-10] MEDS ORDERED: MAG HYDROX/AL HYDROX/SIMETH 30 ML UNIT-DOSE CUP PO PRN (18:39)
[2022-11-10] MEDS ORDERED: ACETAMINOPHEN 325 MG TABLET (FP) PO PRN (18:39)
[2022-11-10] MEDS ORDERED: BENZOCAINE/MENTHOL (CHLORASEPTIC ) LOZENGE MM PRN (18:39)
[2022-11-10] MEDS ORDERED: COLLOIDAL OATMEAL 1 BAR EACH TP PRN (18:39)
[2022-11-10] MEDS ORDERED: IBUPROFEN 600 MG TABLET (FP) PO PRN (18:39)
[2022-11-10] MEDS ORDERED: MAGNESIUM HYDROX 2400MG/30ML ORAL SUSPENSION 30 ML CUP PO PRN (18:39)
[2022-11-10] MEDS ORDERED: P-EPHED 60MG/TRIPROLIDI 2.5MG TABLET PO PRN (18:39)
[2022-11-10] MEDS ORDERED: POLYETHYLENE GLYCOL (HEALTHYLAX) 3350 17 GM PACKET PO PRN (18:39)
[2022-11-10] MEDS ORDERED: IBUPROFEN 400 MG TABLET (FP) PO PRN (18:39)
[2022-11-10] MEDS ORDERED: LOPERAMIDE HCL 2 MG CAPSULE PO PRN (18:39)
[2022-11-10] MEDS: hydrOXYzine PAMOATE 25 MG CAPSULE (FP) PO PRN (23:06)
[2022-11-10] MEDS: MELATONIN 5 MG TABLETS PO SCH (23:06)
[2022-11-10] MEDS: THIAMINE HCL 100 MG TABLET (FP) PO SCH (23:07)
[2022-11-11] MEDS: LIDOCAINE 5% TOPICAL PATCH TP SCH (09:40)
[2022-11-11] MEDS: PRENATAL VITAMINS W/ FOLIC ACID TABLET (FP) PO SCH (09:41)
[2022-11-11 10:08] LABS: HEMATOCRIT 41.6 % (35.4-49); HEMOGLOBIN 13.6 GM/dL (11.7-16.9); MCH 29.4 pg (25.7-33.7); MCHC 32.8 g/dl (32.0-35.9); MEAN CELL VOLUME 89.7 fl (80-96); MEAN PLT VOLUME 9.8 fl (7.5-11.1); PLATELET COUNT 200 10^3/uL (134-434); RBC 4.64 M/mm3 (4.00-5.60); RDW 14.1 % (11.9-15.9); WHITE BLOOD COUNT 7.7 K/mm3 (4.0-10.0)
[2022-11-11 10:17] LABS: POTASSIUM 4.1 mmol/L (3.5-5.1)
[2022-11-11 10:31] LABS: BLOOD UREA NITROGEN 11.3 mg/dL (7-18); CALCIUM 8.8 mg/dL (8.5-10.1)
[2022-11-11 10:32] LABS: ALBUMIN 3.2 g/dl (3.4-5.0)
[2022-11-11 10:34] LABS: CREATININE 0.9 mg/dL (0.55-1.3)
[2022-11-11 10:35] LABS: BILIRUBIN,TOTAL 0.4 mg/dL (0.2-1)
[2022-11-11] MEDS ORDERED: chlordiazePOXIDE HCL 25 MG CAPSULE PO PRN (10:37)
[2022-11-11 10:45] LABS: SYPHILIS W/ RPR CONF NON-REACTIVE (NONREACTIVE)
[2022-11-11] MEDS: chlordiazePOXIDE HCL 25 MG CAPSULE PO SCH ×3 (11:15→23:02)
[2022-11-11] MEDS ORDERED: TUBERCULIN PPD 5 TU/0.1ML SYRINGE (IN PATIENT USE ONLY) ID ONE (12:00)
[2022-11-11] MEDS: MELATONIN 5 MG TABLETS PO SCH (23:02)
[2022-11-11] MEDS: LIDOCAINE PATCH REMOVAL MC SCH (23:02)
[2022-11-11] MEDS: THIAMINE HCL 100 MG TABLET (FP) PO SCH (23:02)
[2022-11-11] MEDS: guaiFENesin 600 MG TABLET.ER (FP) PO PRN (23:09)
[2022-11-12] MEDS: chlordiazePOXIDE HCL 25 MG CAPSULE PO SCH ×4 (05:57→22:44)
[2022-11-12] MEDS: LIDOCAINE 5% TOPICAL PATCH TP SCH (10:31)
[2022-11-12] MEDS: PRENATAL VITAMINS W/ FOLIC ACID TABLET (FP) PO SCH (10:31)
[2022-11-12] MEDS: guaiFENesin 600 MG TABLET.ER (FP) PO PRN (10:48)
[2022-11-12] MEDS: THIAMINE HCL 100 MG TABLET (FP) PO SCH (22:44)
[2022-11-12] MEDS: MELATONIN 5 MG TABLETS PO SCH (22:44)
[2022-11-12] MEDS: LIDOCAINE PATCH REMOVAL MC SCH (22:45)
[2022-11-13] MEDS: chlordiazePOXIDE HCL 25 MG CAPSULE PO SCH ×4 (05:50→22:29)
[2022-11-13] MEDS: LIDOCAINE 5% TOPICAL PATCH TP SCH (10:19)
[2022-11-13] MEDS: PRENATAL VITAMINS W/ FOLIC ACID TABLET (FP) PO SCH (10:20)
[2022-11-13 11:48] LABS: URINE APPEARANCE CLEAR; URINE BILIRUBIN NEGATIVE (NEGATIVE); URINE COLOR YELLOW; URINE GLUCOSE (UA) 3+ (NEGATIVE); URINE KETONE NEGATIVE (NEGATIVE); URINE LEUK ESTERASE NEGATIVE (NEGATIVE); URINE NITRITE NEGATIVE (NEGATIVE); URINE PROTEIN NEGATIVE (NEGATIVE); URINE UROBILINOGEN 0.2 mg/dL (0.2-1.0)
[2022-11-13] MEDS: EMPAGLIFLOZIN (JARDIANCE) 10 MG TABLET PO SCH (12:03)
[2022-11-13] MEDS: MELATONIN 5 MG TABLETS PO SCH (21:31)
[2022-11-13] MEDS: THIAMINE HCL 100 MG TABLET (FP) PO SCH (21:31)
[2022-11-13] MEDS: LIDOCAINE PATCH REMOVAL MC SCH (22:29)
[2022-11-14] MEDS ORDERED: chlordiazePOXIDE HCL 10 MG CAPSULE PO PRN
[2022-11-14] MEDS: chlordiazePOXIDE HCL 10 MG CAPSULE PO SCH ×4 (05:55→22:46)
[2022-11-14] MEDS: EMPAGLIFLOZIN (JARDIANCE) 10 MG TABLET PO SCH (10:29)
[2022-11-14] MEDS: PRENATAL VITAMINS W/ FOLIC ACID TABLET (FP) PO SCH (10:29)
[2022-11-14] MEDS: LIDOCAINE 5% TOPICAL PATCH TP SCH (10:29)
[2022-11-14] MEDS: hydrOXYzine PAMOATE 25 MG CAPSULE (FP) PO PRN (10:30)
[2022-11-14] MEDS: THIAMINE HCL 100 MG TABLET (FP) PO SCH (22:46)
[2022-11-14] MEDS: LIDOCAINE PATCH REMOVAL MC SCH (22:46)
[2022-11-14] MEDS: MELATONIN 5 MG TABLETS PO SCH (22:46)
[2022-11-15] MEDS: chlordiazePOXIDE HCL 10 MG CAPSULE PO SCH ×2 (05:58→17:30)
[2022-11-15] MEDS: LIDOCAINE 5% TOPICAL PATCH TP SCH (09:11)
[2022-11-15] MEDS: PRENATAL VITAMINS W/ FOLIC ACID TABLET (FP) PO SCH (09:11)
[2022-11-15] MEDS: EMPAGLIFLOZIN (JARDIANCE) 10 MG TABLET PO SCH (09:11)
[2022-11-15] MEDS: THIAMINE HCL 100 MG TABLET (FP) PO SCH (22:58)
[2022-11-15] MEDS: LIDOCAINE PATCH REMOVAL MC SCH (22:58)
[2022-11-15] MEDS: MELATONIN 5 MG TABLETS PO SCH (22:58)
[2022-11-16] MEDS ORDERED: chlordiazePOXIDE HCL 10 MG CAPSULE PO ONE (05:00)
[2022-11-16] MEDS: LIDOCAINE 5% TOPICAL PATCH TP SCH (09:17)
[2022-11-16] MEDS: EMPAGLIFLOZIN (JARDIANCE) 10 MG TABLET PO SCH (09:17)
[2022-11-16] MEDS: PRENATAL VITAMINS W/ FOLIC ACID TABLET (FP) PO SCH (09:17)
[2022-11-16] MEDS: LIDOCAINE PATCH REMOVAL MC SCH (21:30)
[2022-11-16] MEDS: MELATONIN 5 MG TABLETS PO SCH (21:30)
[2022-11-16] MEDS: THIAMINE HCL 100 MG TABLET (FP) PO SCH (21:30)
[2022-11-17 09:25] VITALS: TEMP 97.8
[2022-11-17] MEDS: PRENATAL VITAMINS W/ FOLIC ACID TABLET (FP) PO SCH (09:26)
[2022-11-17] MEDS: EMPAGLIFLOZIN (JARDIANCE) 10 MG TABLET PO SCH (09:26)
[2022-11-17] MEDS: LIDOCAINE 5% TOPICAL PATCH TP SCH (09:27)
[2022-11-17 12:37] VITALS: BP 127/81; PULSE 65; RESP 18
== END 2022-11-17 13:48 | disposition other institution (70) | DRG 774 ==
LOC: YASAS 15:38 → Y3N 22:18
PROVIDERS: ADMIT Allergy & Immunology; ATTEND Surgery
PROC: HZ2ZZZZ Detoxification Services for Substance Abuse Treatment (ICD-10-PCS; principal; 2022-11-10)
DX: F10.230 Alcohol dependence with withdrawal, uncomplicated (principal); F14.20 Cocaine dependence, uncomplicated; F12.20 Cannabis dependence, uncomplicated; U07.1 COVID-19; G80.9 Cerebral palsy, unspecified; E11.9 Type 2 diabetes mellitus without complications; Z79.84 Long term (current) use of oral hypoglycemic drugs; R26.89 Other abnormalities of gait and mobility; Z62.810 Personal history of physical and sexual abuse in childhood; Z99.89 Dependence on other enabling machines and devices; Z59.01 Sheltered homelessness
CPT/HCPCS: 26055; 36415; 80053; 81003; 82962; 85027; 86780; 86803; 87635

== ENCOUNTER 2023-08-10 06:04 | Inpatient (IN) | payer OTHER ==
[2023-08-10 06:34] VITALS: BMI 22.8
[2023-08-10] MEDS ORDERED: DICYCLOMINE HCL 10 MG CAPSULE PO PRN (07:24)
[2023-08-10] MEDS ORDERED: hydrOXYzine PAMOATE 25 MG CAPSULE (FP) PO PRN (07:24)
[2023-08-10] MEDS ORDERED: BISMUTH SUBSALICYLATE 262 MG/15 ML BTL PO PRN (07:24)
[2023-08-10] MEDS ORDERED: NALOXONE HCL 0.4 MG/ML VIAL IM PRN (07:24)
[2023-08-10] MEDS ORDERED: POLYETHYLENE GLYCOL (HEALTHYLAX) 3350 17 GM PACKET PO PRN (07:24)
[2023-08-10] MEDS ORDERED: NALOXONE (NARCAN) HCL 4 MG/0.1 ML SPRAY NS PRN (07:24)
[2023-08-10] MEDS ORDERED: chlordiazePOXIDE HCL 25 MG CAPSULE PO PRN (07:24)
[2023-08-10] MEDS ORDERED: MAGNESIUM HYDROX 2400MG/30ML ORAL SUSPENSION 30 ML CUP PO PRN (07:24)
[2023-08-10] MEDS ORDERED: METHOCARBAMOL 500 MG TABLET PO PRN (07:24)
[2023-08-10] MEDS ORDERED: IBUPROFEN 400 MG TABLET (FP) PO PRN (07:24)
[2023-08-10] MEDS ORDERED: LOPERAMIDE HCL 2 MG CAPSULE PO PRN (07:24)
[2023-08-10] MEDS ORDERED: ONDANSETRON *ODT* 4 MG TABLET SL PRN (07:24)
[2023-08-10] MEDS ORDERED: BENZONATATE 200 MG CAPSULE PO PRN (07:24)
[2023-08-10] MEDS ORDERED: BENZOCAINE/MENTHOL (CHLORASEPTIC ) LOZENGE MM PRN (07:24)
[2023-08-10] MEDS ORDERED: MAG HYDROX/AL HYDROX/SIMETH 30 ML UNIT-DOSE CUP PO PRN (07:24)
[2023-08-10] MEDS ORDERED: ACETAMINOPHEN 325 MG TABLET (FP) PO PRN (07:24)
[2023-08-10] MEDS ORDERED: guaiFENesin 600 MG TABLET.ER (FP) PO PRN (07:24)
[2023-08-10] MEDS: PRENATAL VITAMINS W/ FOLIC ACID TABLET (FP) PO SCH (10:27)
[2023-08-10] MEDS: chlordiazePOXIDE HCL 25 MG CAPSULE PO SCH (10:29)
[2023-08-10] MEDS: ACAMPROSATE CALCIUM 333 MG TABLET.DR PO SCH (13:10)
[2023-08-10] MEDS: THIAMINE 100 MG TABLET PO SCH (23:09)
[2023-08-10] MEDS: MELATONIN 5 MG TABLETS PO SCH (23:09)
[2023-08-11] MEDS: EMPAGLIFLOZIN (JARDIANCE) 10 MG TABLET PO SCH (06:02)
[2023-08-11 11:53] LABS: HEMATOCRIT 42.8 % (35.4-49); HEMOGLOBIN 14.5 GM/dL (11.7-16.9); MCH 29.8 pg (25.7-33.7); MCHC 33.9 g/dl (32.0-35.9); MEAN CELL VOLUME 87.8 fl (80-96); MEAN PLT VOLUME 9.9 fl (7.5-11.1); PLATELET COUNT 169 10^3/uL (134-434); POTASSIUM 4.2 mmol/L (3.5-5.1); RBC 4.88 M/mm3 (4.00-5.60); RDW 14.3 % (11.9-15.9); WHITE BLOOD COUNT 4.2 K/mm3 (4.0-10.0)
[2023-08-11 12:00] LABS: BLOOD UREA NITROGEN 12.8 mg/dL (7-18); CALCIUM 8.8 mg/dL (8.5-10.1)
[2023-08-11 12:01] LABS: ALBUMIN 3.6 g/dl (3.4-5.0)
[2023-08-11 12:04] LABS: CREATININE 0.9 mg/dL (0.55-1.3)
[2023-08-11 12:06] LABS: BILIRUBIN,TOTAL 0.4 mg/dL (0.2-1); TOT PROT 6.2 g/dl (6.4-8.2)
[2023-08-11 13:08] LABS: HIV INTERPRETATION NEGATIVE (NEGATIVE)
[2023-08-11] MEDS: IBUPROFEN 600 MG TABLET (FP) PO PRN (17:32)
[2023-08-11] MEDS: LACTULOSE 20 GM/30 ML UDC (FOR ORAL USE ONLY) PO SCH (23:30)
[2023-08-12] MEDS: chlordiazePOXIDE HCL 25 MG CAPSULE PO SCH (05:54)
[2023-08-12 13:25] VITALS: RESP 16
[2023-08-13] MEDS ORDERED: chlordiazePOXIDE HCL 10 MG CAPSULE PO PRN
[2023-08-13] MEDS: chlordiazePOXIDE HCL 10 MG CAPSULE PO SCH (06:00)
[2023-08-13 08:40] VITALS: BP 108/75; PULSE 83; TEMP 96.9
[2023-08-14] MEDS ORDERED: chlordiazePOXIDE HCL 10 MG CAPSULE PO SCH (05:00)
[2023-08-15] MEDS ORDERED: chlordiazePOXIDE HCL 10 MG CAPSULE PO ONE (05:00)
== END 2023-08-13 09:55 | disposition home or self-care (01) | DRG 774 ==
LOC: YASAS 06:04 → Y6N 08:25
PROVIDERS: ADMIT Allergy & Immunology; ATTEND Surgery
PROC: HZ2ZZZZ Detoxification Services for Substance Abuse Treatment (ICD-10-PCS; principal; 2023-08-10)
DX: F10.230 Alcohol dependence with withdrawal, uncomplicated (principal); F14.20 Cocaine dependence, uncomplicated; G80.9 Cerebral palsy, unspecified; E11.9 Type 2 diabetes mellitus without complications; Z79.84 Long term (current) use of oral hypoglycemic drugs; R79.89 Other specified abnormal findings of blood chemistry; Z62.810 Personal history of physical and sexual abuse in childhood; Z63.8 Other specified problems related to primary support group; Z99.89 Dependence on other enabling machines and devices
CPT/HCPCS: 36415; 71046-TC-FY; 80053; 80305; 80307; 82140; 82962; 83036; 85027; 86780; 87389; 93005; 93010